=== PATIENT | male | born 1950 | race Caucasian/White ===

== ENCOUNTER → 2017-04-28 | Day surgery (SDC) | payer OTHER, MEDICARE ==
[2017-04-27 10:20] LABS: BASOPHILS % 0.5 % (0.0-1.0); EOSINOPHILS # (AUTO) 0.2 (0.0-0.4); EOSINOPHILS % 2.3 % (0.0-6.0); HEMATOCRIT 32.9 % (38.2-49.6); HEMOGLOBIN 9.3 g/dL (14.0-18.0); LYMPHOCYTES # (AUTO) 1.8 (1.0-3.2); LYMPHOCYTES % 24.8 % (18.0-39.1); MEAN CORPUSCULAR HEMOGLOBIN 21.4 pg (28-32); MEAN CORPUSCULAR HGB CONC 28.3 g/dL (31-35); MEAN CORPUSCULAR VOLUME 75.8 fL (81-99); MONOCYTES # (AUTO) 0.7 (0.2-0.8); MONOCYTES % 10.1 % (4.4-11.3); NEUTROPHILS # (AUTO) 4.5 (2.1-6.9); NEUTROPHILS % 61.8 % (38.7-80.0); PLATELET COUNT 250 x10e3/uL (140-360); RED BLOOD COUNT 4.34 x10e6/uL (4.3-5.7); RED CELL DISTRIBUTION WIDTH 18.6 % (11.7-14.4)
[2017-04-27 10:31] LABS: INR 0.95; PROTHROMBIN TIME 13.2 seconds (11.9-14.5)
[2017-04-27 10:39] LABS: ANION GAP 12.3 mmol/L (8-16); BLOOD UREA NITROGEN 18 mg/dL (7-26); BUN/CREATININE RATIO 20 (6-25); CALCIUM 9.9 mg/dL (8.4-10.2); CARBON DIOXIDE 29 mmol/L (22-29); CHLORIDE 107 mmol/L (98-107); EST GLOMERULAR FILTRATION RATE > 60 ML/MIN (60-); GLUCOSE 121 mg/dL (74-118); POTASSIUM 4.3 mmol/L (3.5-5.1); SODIUM 144 mmol/L (136-145)
--- NOTE | 2017-04-27 11:24 | Diagnostic Imaging Report ---
PROCEDURE:CHEST 2 VIEWS TECHNIQUE:PA and lateral chest INDICATION:Preoperative evaluation for pacemaker replacement. COMPARISON:Patients [facility], , CHEST 2 VIEWS, 07/02/2009, 12:50. FINDINGS: Lungs are clear and symmetrically inflated. Enlarged cardiac silhouette central vasculature. 2-lead pacemaker of the left hemithorax; leads intact. Intact skeleton with multilevel degenerative disc disease. CONCLUSION: No acute abnormality. Progressive cardiomegaly relative to June 2009. Dictated by: David Muller M.D. on 04/27/2017 at 11:33 Electronically approved by: David Muller M.D. on 04/27/2017 at 11:33
[2017-04-27 12:16] LABS: HYPOCHROMASIA MODERATE; PLATELET ESTIMATE ADEQUATE; PLATELET MORPHOLOGY COMMENT NORMAL; RBC MORPHOLOGY COMMENT NORMAL
[~2017-04-28] VITALS: Ht 170.2 cm; Wt 96.2 kg
[~2017-04-28] MED LIST: ASPIRIN81 MG PEG; ASPRIMOX 325 M325 MG PO; ATORVASTATIN CA10 MG PO; BACITRACIN 50,000 UNIT VIAL ONE; FENTANYL CITRATE/PF 100MCG/2 ML INJ ONE; FINASTERIDE5 MG PO; LIDOCAINE HCL 2% LOCAL 20 ML VIAL ONE; LOSARTAN POTASS25 MG PEG; MIDAZOLAM HCL 2 MG/2 ML VIAL ONE; OMEPRAZOLE40 MG PO; SODIUM CHLORIDE 0.9% 1000ML 1,000 ML ONE; SODIUM CHLORIDE 0.9% 500ML 1,000 ML ONE; TAMSULOSIN HCL0.4 MG PO; VANCOMYCIN 1GM/NS 250 ML 250 ML ONE; Z.0.METOPROLOL SUCC5 PO; Z.0.MICARDIS80 MG PO; Z.0.NIASPAN500 MG PO; Z.0.PLAVIX75 MG; ZOLPIDEM TARTRAT5 MG PO
[2017-04-28 06:50] VITALS: BP 154/87
--- NOTE | 2017-04-28 08:32 | Operative Report ---
DATE OF PROCEDURE: April 28, 2017 PROCEDURE: Dual chamber pacemaker generator replacement. INDICATIONS: Sick sinus syndrome and pacemaker generator end of life. TECHNIQUE: The patient's left subclavicular area was draped and prepped in the usual manner. The are was anesthetized with lidocaine. Sterile technique was used to open the pacemaker pocket with a 10 blade scalpel. The existing generator was dissected free of the pocket and removed from the leads. The leads were attached to a new [employer] generator. The pocket was irrigated with antibiotic solution. The generator was placed back in the pocket and anchored into the pocket with 2-0 silk. Two-0 Vicryl was used for the subcutaneous closure and the subcuticular closure. There were no complications. CONCLUSION: Successful dual chamber pacemaker generator replacement. Job#: [id number] RUSTY
[2017-04-28 13:33] VITALS: BP 142/82
== END | disposition home or self-care (01) ==
LOC: CATH LAB 06:54
PROVIDERS: ATTEND Internal Medicine Cardiovascular Disease
DX: Z45.010 Encounter for checking and testing of cardiac pacemaker pulse generator [battery] (principal); I49.5 Sick sinus syndrome; I25.10 Atherosclerotic heart disease of native coronary artery without angina pectoris; I10 Essential (primary) hypertension; Z01.810 Encounter for preprocedural cardiovascular examination; Z01.812 Encounter for preprocedural laboratory examination; Z01.818 Encounter for other preprocedural examination
CPT/HCPCS: 33228; C2619; 36415; 71020; 80048; 85025; 85610; 93005; J2001; J2250; J3370; J7030; J7040

== ENCOUNTER → 2017-05-24 | Emergency (ER) | payer OTHER, MEDICARE ==
[~2017-05-24] VITALS: Ht 170.2 cm; Wt 96.2 kg
[~2017-05-24] MED LIST changes: -BACITRACIN 50,000 UNIT VIAL ONE; -FENTANYL CITRATE/PF 100MCG/2 ML INJ ONE; -LIDOCAINE HCL 2% LOCAL 20 ML VIAL ONE; -MIDAZOLAM HCL 2 MG/2 ML VIAL ONE; -SODIUM CHLORIDE 0.9% 1000ML 1,000 ML ONE; -SODIUM CHLORIDE 0.9% 500ML 1,000 ML ONE; -VANCOMYCIN 1GM/NS 250 ML 250 ML ONE
== END | disposition home or self-care (01) ==
LOC: ER 13:31
DX: K43.9 Ventral hernia without obstruction or gangrene (principal)
CPT/HCPCS: 99281

== ENCOUNTER 2017-10-14 11:31 | Emergency (ER) | payer OTHER, MEDICARE ==
[~2017-10-14] VITALS: Ht 170.2 cm; Wt 90.7 kg
--- OUTSIDE RECORDS SUMMARY | 2017-10-14 11:34 | XMS REPORT ---
[facility] Address Unknown Phone Unavailable Care Team Providers Care Dehydrogenation Supervisor Name Role Phone YURIY SORIANO Unavailable Unavailable Problems This patient has no known problems. Allergies, Adverse Reactions, Alerts This patient has no known allergies or adverse reactions. Medications This patient has no known medications. Results Test Description Test Time Test Comments Text Results Atomic Results Result Comments CHEST 2 VIEWS [place] [id number] Patient Name: [facility] MR #: [id number] : 1950 Age/Sex: 67/M Req # : [id number] Adm Physician: Ordered by: YURIY SORIANO MD Report #: [id number] Location: [facility] Room/Bed: Procedure: [id number] DX/CHEST 2 VIEWS Exam Date: 04/27/17 Exam Time : 1105 REPORT STATUS: Signed PROCEDURE: CHEST 2 VIEWS TECHNIQUE: PA and lateral chest INDICATION: Preoperative evaluation for pacemaker replacement. COMPARISON: [facility], , CHEST 2 VIEWS, 2009, 12:50. FINDINGS: Lungs are clear and symmetrically inflated. Enlarged cardiac silhouette central vasculature. 2-lead pacemaker of the left hemithorax; leads intact. Intact skeleton with multilevel degenerative disc disease. CONCLUSION: No acute abnormality. Progressive cardiomegaly relative to June 2009. Dictated by: Reynaldo Muller M.D. on 04/27/2017 at 11:33 Electronically approved by: Reynaldo Muller M.D. on 04/27/2017 at 11:33 Dictated By: REYNALDO MULLER MD [id number] Transcribed By: SOFIA on 04/27/173 COPY TO: YURIY SORIANO MD
[2017-10-14] MEDS ORDERED: HYDRALAZINE HCL 20 MG/ML VIAL IV STA (12:25)
[2017-10-14 13:36] VITALS: BP 144/95
== END 2017-10-14 13:30 | disposition home or self-care (01) ==
LOC: ER 11:31
DX: I10 Essential (primary) hypertension (principal); K08.89 Other specified disorders of teeth and supporting structures
CPT/HCPCS: 99283; J0360

== ENCOUNTER 2018-04-09 09:37 | Emergency (ER) | payer OTHER, MEDICARE ==
[~2018-04-09] VITALS: Ht 170.2 cm; Wt 90.7 kg
[2018-04-09 10:09] LABS: BASOPHILS % 0.6 % (0.0-1.0); EOSINOPHILS # (AUTO) 0.1 (0.0-0.4); EOSINOPHILS % 2.1 % (0.0-6.0); HEMATOCRIT 41.9 % (38.2-49.6); LYMPHOCYTES # (AUTO) 1.8 (1.0-3.2); LYMPHOCYTES % 26.4 % (18.0-39.1); MEAN CORPUSCULAR HEMOGLOBIN 31.6 pg (28-32); MEAN CORPUSCULAR HGB CONC 33.4 g/dL (31-35); MEAN CORPUSCULAR VOLUME 94.6 fL (81-99); MONOCYTES # (AUTO) 0.5 (0.2-0.8); MONOCYTES % 7.6 % (4.4-11.3); NEUTROPHILS # (AUTO) 4.2 (2.1-6.9); NEUTROPHILS % 62.4 % (38.7-80.0); PLATELET COUNT 190 x10e3/uL (140-360); RED BLOOD COUNT 4.43 x10e6/uL (4.3-5.7); RED CELL DISTRIBUTION WIDTH 13.1 % (11.7-14.4)
[2018-04-09 10:23] LABS: BILIRUBIN,URINE NEGATIVE (NEGATIVE); CLARITY,URINE SL CLOUDY (CLEAR); COLOR,URINE YELLOW (YELLOW); KETONES,URINE NEGATIVE (NEGATIVE); LEUKOCYTE ESTERASE ,URINE NEGATIVE (NEGATIVE); NITRITE,URINE NEGATIVE (NEGATIVE); PROTEIN,URINE DIPSTICK NEGATIVE (NEGATIVE); URINE UROBILINOGEN 0.2 mg/dL (0.2 - 1)
[2018-04-09 10:24] LABS: BACTERIA,URINE FEW /HPF; RBC,URINE 0-5 /HPF (0-5)
[2018-04-09 10:36] LABS: ALANINE AMINOTRANSFERASE 22 IU/L (0-55); ALBUMIN 3.9 g/dL (3.5-5.0); ALBUMIN/GLOBULIN RATIO 1.1 (0.8-2.0); ALKALINE PHOSPHATASE 59 IU/L (40-150); ANION GAP 9.7 mmol/L (8-16); BLOOD UREA NITROGEN 25 mg/dL (7-26); BUN/CREATININE RATIO 29 (6-25); CALCIUM 9.6 mg/dL (8.4-10.2); CARBON DIOXIDE 31 mmol/L (22-29); CHLORIDE 106 mmol/L (98-107); CREATININE, SERUM 0.87 mg/dL (0.72-1.25); EST GLOMERULAR FILTRATION RATE > 60 ML/MIN (60-); GLUCOSE 122 mg/dL (74-118); POTASSIUM 3.7 mmol/L (3.5-5.1); SODIUM 143 mmol/L (136-145)
[2018-04-09] MEDS ORDERED: SODIUM CHLORIDE 0.9% 1000ML 1,000 ML IV STA (10:39)
[2018-04-09] MEDS ORDERED: MORPHINE SULFATE INJ 4 MG/ML INJ IV PRN (10:45)
[2018-04-09] MEDS ORDERED: SODIUM CHLORIDE 0.9% 100 ML 0 ML ONE (12:24)
[2018-04-09] MEDS ORDERED: IOPAMIDOL 300MG/ML 100 ML INFUS..BTL IV ONE (12:24)
[2018-04-09] MEDS ORDERED: IOPAMIDOL 370 MG/ML 200 ML INFUS..BTL INJ ONE ×2 (12:25→20:19)
[2018-04-09] MEDS ORDERED: SODIUM CHLORIDE 0.9% 50ML 50 ML ONE ×2 (12:25→20:19)
--- NOTE | 2018-04-09 12:30 | Diagnostic Imaging Report ---
EXAMINATION: CT of the abdomen and pelvis with contrast. TECHNIQUE: Spiral CT images of the abdomen and pelvis were performed from the lung bases to the lesser trochanters after the intravenous administration of 100 cc of Isovue-370 and the oral administration of water. Coronal and sagittal reformatted images were obtained. COMPARISON: Chest radiograph 04/27/2017 CLINICAL HISTORY:Abdominal pain DISCUSSION: ABDOMEN/PELVIS: LOWER THORAX:Unremarkable. Implant cardiac device lead partially visualized. HEPATOBILIARY: No focal hepatic lesions. No intra-or extrahepatic biliary ductal dilation. The gallbladder is normal. SPLEEN: No splenomegaly. PANCREAS: Dystrophic calcification in the pancreatic tail. No mass or ductal dilatation. ADRENALS: No adrenal nodules. KIDNEYS/URETERS: No hydronephrosis, stones, or solid mass lesions. PELVIC ORGANS/BLADDER: The urinary bladder is poorly evaluated secondary to underdistention. The prostate is enlarged with disproportionate mass effect on the left side of the urinary bladder base as seen on series 2 image 75. PERITONEUM/RETROPERITONEUM: No ascites. No pneumoperitoneum. LYMPH NODES: No pelvic sidewall, retroperitoneal, or mesenteric lymphadenopathy. VESSELS: There is atherosclerotic calcification of the abdominal aorta, major branch vessels, and iliac arterial systems without aneurysmal dilatation. Portal vein, splenic vein, and central superior mesenteric vein are patent. GI TRACT: Status post mesh repair of a ventral hernia with a complex, multilobulated recurrent hernia. Along the right superolateral margin of the repaired portion there is a hernia defect measuring 4.2 cm transversely, which contains a loop of small bowel and a small amount of adjacent free fluid. Along the left side of the repaired segment there is a 3.2 cm transverse hernia defect, also containing a loop of small bowel without evidence of distention. Finally, inferior to the repaired segment, at midline there is a 5.7 cm hernia defect which contains a segment of small bowel again without evidence of distention or inflammatory change. The large bowel is notable for numerous diverticula along the descending and sigmoid colon without wall thickening or adjacent inflammatory change, though partial collapse of the bowel limits evaluation. The appendix is normal. Remainder of the small bowel shows no evidence of distention or wall thickening, though there is mild inflammatory stranding within the small bowel mesentery for example on series 2 image 46.. BONES AND SOFT TISSUE: No osseous destructive lesions. Ventral abdominal wall hernia as above. IMPRESSION: Complex recurrent ventral abdominal hernia as described above, which contains several loops of small bowel. There is no evidence of bowel obstruction, though mild mesenteric inflammation is noted. No brii pneumoperitoneum. Large bowel diverticulosis without evidence of diverticulitis. Atherosclerotic vascular disease. Prostatomegaly with disproportionate mass effect on the left side of the urinary bladder base. Referral to urology service is suggested. Signed by: Dr. Avni Cueva M.D. on 04/09/2018 12:26 PM
[2018-04-09 13:56] VITALS: BP 171/91
[2018-04-09] MEDS ORDERED: HYDROMORPHONE 2MG/ML 2 MG/ML ML IV NR ×2 (14:15)
== END 2018-04-09 14:05 | disposition home or self-care (01) ==
LOC: ER 09:37
DX: R10.33 Periumbilical pain (principal); K43.2 Incisional hernia without obstruction or gangrene; K57.30 Diverticulosis of large intestine without perforation or abscess without bleeding; I10 Essential (primary) hypertension; I25.10 Atherosclerotic heart disease of native coronary artery without angina pectoris; Z95.5 Presence of coronary angioplasty implant and graft; E78.5 Hyperlipidemia, unspecified; N40.0 Benign prostatic hyperplasia without lower urinary tract symptoms; Z79.02 Long term (current) use of antithrombotics/antiplatelets; Z79.82 Long term (current) use of aspirin
CPT/HCPCS: 36415; 74177; 80053; 81001; 85025; 99284; J1170; J2270; J7030; Q9967

== ENCOUNTER 2020-10-05 09:56 | Inpatient (IN) | payer MEDICARE, OTHER ==
[~2020-10-05] VITALS: Ht 170.2 cm; Wt 99.3 kg
[~2020-10-05 09:56] MED LIST changes: +LOSARTAN POTASS25 MG MT; -LOSARTAN POTASS25 MG PEG
[2020-10-05] MEDS ORDERED: SODIUM CHLORIDE 0.9% 1000ML 1,000 ML IV ONE (10:02)
[2020-10-05] MEDS ORDERED: ONDANSETRON HCL INJ 2MG/ML 2ML 2 MG/ML VIAL IV PRN (10:15)
[2020-10-05 10:29] LABS: BASOPHILS % 0.2 % (0.0-1.0); EOSINOPHILS % 0.1 % (0.0-6.0); HEMATOCRIT 46.4 % (38.2-49.6); HEMOGLOBIN 15.4 g/dL (14.0-18.0); LYMPHOCYTES # (AUTO) 1.4 (1.0-3.2); LYMPHOCYTES % 16.5 % (18.0-39.1); MEAN CORPUSCULAR HEMOGLOBIN 31.1 pg (28-32); MEAN CORPUSCULAR HGB CONC 33.2 g/dL (31-35); MEAN CORPUSCULAR VOLUME 93.7 fL (81-99); MONOCYTES # (AUTO) 0.8 (0.2-0.8); MONOCYTES % 8.8 % (4.4-11.3); NEUTROPHILS # (AUTO) 6.4 (2.1-6.9); NEUTROPHILS % 73.8 % (38.7-80.0); PLATELET COUNT 248 x10e3/uL (140-360); RED BLOOD COUNT 4.95 x10e6/uL (4.3-5.7); RED CELL DISTRIBUTION WIDTH 13.2 % (11.7-14.4)
[2020-10-05] MEDS ORDERED: HYDROCHLOROTH12.5 MG PO (10:41)
[2020-10-05] MEDS ORDERED: KRILL OIL500 MG PO (10:41)
[2020-10-05] MEDS ORDERED: CO Q-1010 MG PO (10:41)
[2020-10-05 10:51] LABS: ALANINE AMINOTRANSFERASE 26 IU/L (0-55); ALBUMIN 4.5 g/dL (3.5-5.0); ALBUMIN/GLOBULIN RATIO 1.1 (0.8-2.0); ALKALINE PHOSPHATASE 60 IU/L (40-150); ANION GAP 18.3 mmol/L (8-16); BLOOD UREA NITROGEN 29 mg/dL (7-26); BUN/CREATININE RATIO 26 (6-25); CALCIUM 10.1 mg/dL (8.4-10.2); CARBON DIOXIDE 31 mmol/L (22-29); CHLORIDE 93 mmol/L (98-107); CREATININE, SERUM 1.13 mg/dL (0.72-1.25); EST GLOMERULAR FILTRATION RATE > 60 ML/MIN (60-); GLUCOSE 168 mg/dL (74-118); LIPASE 7 U/L (8-78); POTASSIUM 3.3 mmol/L (3.5-5.1); SODIUM 139 mmol/L (136-145)
[2020-10-05 10:51] LABS: CLARITY,URINE CLEAR (CLEAR); COLOR,URINE YELLOW (YELLOW); KETONES,URINE NEGATIVE (NEGATIVE); LEUKOCYTE ESTERASE ,URINE NEGATIVE (NEGATIVE); NITRITE,URINE NEGATIVE (NEGATIVE); PROTEIN,URINE DIPSTICK 1+ (NEGATIVE); URINE UROBILINOGEN 0.2 mg/dL (0.2 - 1)
[2020-10-05] MEDS ORDERED: IOPAMIDOL 370 MG/ML 200 ML INFUS..BTL INJ ONE (11:19)
[2020-10-05] MEDS ORDERED: SODIUM CHLORIDE 0.9% 50ML 50 ML ONE (11:19)
[2020-10-05 11:23] LABS: RBC,URINE 0-5 /HPF (0-5); WBC,URINE (MAN) 0-5 /HPF (0-5)
[2020-10-05 11:24] LABS: AMORPHOUS SEDIMENT,URINE FEW (FEW); BACTERIA,URINE RARE /HPF
[2020-10-05] MEDS: SODIUM CHLORIDE 0.9% 1000ML 1,000 ML IV SCH ×2 (13:45→21:17)
[2020-10-05] MEDS: FENTANYL CITRATE/PF 100MCG/2 ML INJ IV PRN ×3 (13:51→17:57)
[2020-10-05 14:46] LABS: CHOL/HDL RATIO 3.5 (3.9-4.7)
[2020-10-05 15:00] VITALS: BP 164/92
[2020-10-05 15:55] VITALS: BP 164/92
[2020-10-05 16:33] VITALS: BP 164/92
[2020-10-05] MEDS ORDERED: FAMOTIDINE20 MG PO (16:47)
[2020-10-05] MEDS: FAMOTIDINE 20 MG/2 ML VIAL IV SCH (17:00)
[2020-10-05] MEDS ORDERED: METOPROLOL TARTRATE INJ 1 MG/ML VIAL IV PRN (18:45)
[2020-10-05 20:57] VITALS: BP 145/85
[2020-10-05] MEDS: PIPERACILLIN/TAZOBACTAM 3.375 GM in SODIUM CHLORIDE 0.9% 50ML 50 ML IV SCH (21:17)
[2020-10-05 21:18] VITALS: BP 145/85
[2020-10-06] VITALS (8 sets, daily range): BP systolic 143–159; BP diastolic 84–96
[2020-10-06] MEDS: ONDANSETRON HCL INJ 2MG/ML 2ML 2 MG/ML VIAL IV PRN ×3 (00:53→21:30)
[2020-10-06] MEDS: MORPHINE SULFATE INJ 4 MG/ML INJ 1ML IV PRN ×2 (00:53→21:30)
[2020-10-06 04:54] LABS: BASOPHILS # (AUTO) 0.1 (0.0-0.1); BASOPHILS % 0.9 % (0.0-1.0); HEMATOCRIT 43.5 % (38.2-49.6); HEMOGLOBIN 14.2 g/dL (14.0-18.0); LYMPHOCYTES # (AUTO) 0.5 (1.0-3.2); LYMPHOCYTES % 9.5 % (18.0-39.1); MEAN CORPUSCULAR HEMOGLOBIN 31.2 pg (28-32); MEAN CORPUSCULAR HGB CONC 32.6 g/dL (31-35); MEAN CORPUSCULAR VOLUME 95.6 fL (81-99); MONOCYTES # (AUTO) 0.8 (0.2-0.8); MONOCYTES % 14.8 % (4.4-11.3); NEUTROPHILS # (AUTO) 4.1 (2.1-6.9); NEUTROPHILS % 74.3 % (38.7-80.0); PLATELET COUNT 171 x10e3/uL (140-360); RED BLOOD COUNT 4.55 x10e6/uL (4.3-5.7); RED CELL DISTRIBUTION WIDTH 13.4 % (11.7-14.4)
[2020-10-06 05:15] LABS: ANION GAP 16.6 mmol/L (8-16); BLOOD UREA NITROGEN 31 mg/dL (7-26); BUN/CREATININE RATIO 27 (6-25); CALCIUM 8.8 mg/dL (8.4-10.2); CARBON DIOXIDE 27 mmol/L (22-29); CHLORIDE 104 mmol/L (98-107); CREATININE, SERUM 1.15 mg/dL (0.72-1.25); EST GLOMERULAR FILTRATION RATE > 60 ML/MIN (60-); GLUCOSE 148 mg/dL (74-118); POTASSIUM 3.6 mmol/L (3.5-5.1); SODIUM 144 mmol/L (136-145)
[2020-10-06 05:33] LABS: MAGNESIUM 2.6 MG/DL (1.3-2.1); PHOSPHORUS 3.4 MG/DL (2.3-4.7)
[2020-10-06] MEDS: SODIUM CHLORIDE 0.9% 1000ML 1,000 ML IV SCH ×3 (05:45→20:49)
[2020-10-06] MEDS: PIPERACILLIN/TAZOBACTAM 3.375 GM in SODIUM CHLORIDE 0.9% 50ML 50 ML IV SCH ×3 (05:46→21:32)
[2020-10-06 06:38] LABS: BAND NEUTROPHILS % (MANUAL) 14 %; EOSINOPHILS % (MANUAL) 1 % (0-7); LYMPHOCYTES % (MANUAL) 8 % (19-48); MONOCYTES % (MANUAL) 11 % (3.4-9.0); NEUTROPHILS % (MANUAL) 65 % (40-74); PLATELET ESTIMATE ADEQUATE; PLATELET MORPHOLOGY COMMENT NORMAL; RBC MORPHOLOGY COMMENT NORMAL
[2020-10-06] MEDS: FAMOTIDINE 20 MG/2 ML VIAL IV SCH ×2 (08:40→18:41)
[2020-10-06] MEDS ORDERED: PIPERACILLIN/TAZOBACTAM 3.375 GM VIAL ONE (10:41)
[2020-10-06] MEDS ORDERED: SODIUM CHLORIDE 0.9% 50ML 50 ML ONE (10:42)
[2020-10-06] MEDS ORDERED: ACETAMINOPHEN 1000 MG/100 ML 100 ML IV ONE (11:38)
[2020-10-06] MEDS ORDERED: HYDROMORPHONE 1MG/1ML INJ ONE (11:39)
[2020-10-06] MEDS ORDERED: ALBUMIN 25% 12.5GM 50ML 0 ML IV ONE (12:10)
[2020-10-06] MEDS ORDERED: MIDAZOLAM HCL 2 MG/2 ML VIAL ONE (12:20)
[2020-10-06] MEDS ORDERED: FENTANYL CITRATE/PF 100MCG/2 ML INJ ONE (12:20)
[2020-10-06] MEDS ORDERED: SUGAMMADEX SODIUM 200 MG/2 ML VIAL IV ONE (12:31)
[2020-10-06] MEDS ORDERED: NEOSTIGMINE 1 MG/ML 10ML VIAL ONE (12:38)
[2020-10-06] MEDS ORDERED: KETOROLAC TROMETHAMINE 30 MG/ML VIAL ONE (12:55)
[2020-10-06] MEDS ORDERED: ONDANSETRON HCL INJ 2MG/ML 2ML 2 MG/ML VIAL ONE (12:55)
[2020-10-06] MEDS ORDERED: LIDOCAINE HCL 2% LOCAL INJ 5 ML SDV VIAL INJ ONE (12:55)
[2020-10-06] MEDS ORDERED: SEVOFLURANE INHAL SOLN 250 ML PEN BTL ONE (12:55)
[2020-10-06] MEDS ORDERED: ROCURONIUM BROMIDE 10 MG/ML 5ML VIAL IV ONE (12:55)
[2020-10-06] MEDS ORDERED: METOCLOPRAMIDE HCL 10 MG/2ML VIAL ONE (12:55)
[2020-10-06] MEDS ORDERED: PROPOFOL IV EMULSION 10 MG/ML 20 ML VIAL ONE (12:55)
[2020-10-06] MEDS ORDERED: POVIDONE IODINE 0.05% 0.05 % ML PO ONE (12:55)
[2020-10-06] MEDS ORDERED: DEXAMETHASONE SOD PHOS INJ 4 MG/ML VIAL ONE (12:55)
[2020-10-07] VITALS (7 sets, daily range): BP systolic 141–156; BP diastolic 85–101
[2020-10-07] MEDS: MORPHINE SULFATE INJ 4 MG/ML INJ 1ML IV PRN ×3 (03:54→21:24)
[2020-10-07] MEDS: ONDANSETRON HCL INJ 2MG/ML 2ML 2 MG/ML VIAL IV PRN ×2 (03:55→08:24)
[2020-10-07] MEDS: SODIUM CHLORIDE 0.9% 1000ML 1,000 ML IV SCH ×2 (05:38→13:57)
[2020-10-07] MEDS: PIPERACILLIN/TAZOBACTAM 3.375 GM in SODIUM CHLORIDE 0.9% 50ML 50 ML IV SCH ×3 (05:38→21:17)
[2020-10-07 07:53] LABS: BASOPHILS % 0.3 % (0.0-1.0); EOSINOPHILS % 0.2 % (0.0-6.0); HEMATOCRIT 41.9 % (38.2-49.6); HEMOGLOBIN 13.2 g/dL (14.0-18.0); LYMPHOCYTES # (AUTO) 0.8 (1.0-3.2); LYMPHOCYTES % 13.3 % (18.0-39.1); MEAN CORPUSCULAR HEMOGLOBIN 30.8 pg (28-32); MEAN CORPUSCULAR HGB CONC 31.5 g/dL (31-35); MEAN CORPUSCULAR VOLUME 97.9 fL (81-99); MONOCYTES # (AUTO) 0.6 (0.2-0.8); MONOCYTES % 10.2 % (4.4-11.3); NEUTROPHILS # (AUTO) 4.7 (2.1-6.9); NEUTROPHILS % 74.9 % (38.7-80.0); PLATELET COUNT 186 x10e3/uL (140-360); RED BLOOD COUNT 4.28 x10e6/uL (4.3-5.7); RED CELL DISTRIBUTION WIDTH 13.8 % (11.7-14.4)
[2020-10-07 08:15] LABS: MAGNESIUM 2.8 MG/DL (1.3-2.1); PHOSPHORUS 2.4 MG/DL (2.3-4.7)
[2020-10-07] MEDS: FAMOTIDINE 20 MG/2 ML VIAL IV SCH ×2 (08:23→16:43)
[2020-10-07 08:25] LABS: ANION GAP 13.7 mmol/L (8-16); BLOOD UREA NITROGEN 31 mg/dL (7-26); BUN/CREATININE RATIO 28 (6-25); CALCIUM 8.2 mg/dL (8.4-10.2); CARBON DIOXIDE 28 mmol/L (22-29); CHLORIDE 109 mmol/L (98-107); CREATININE, SERUM 1.11 mg/dL (0.72-1.25); EST GLOMERULAR FILTRATION RATE > 60 ML/MIN (60-); GLUCOSE 135 mg/dL (74-118); POTASSIUM 3.7 mmol/L (3.5-5.1); SODIUM 147 mmol/L (136-145)
[2020-10-07 10:26] LABS: BAND NEUTROPHILS % (MANUAL) 8 %; LYMPHOCYTES % (MANUAL) 4 % (19-48); MONOCYTES % (MANUAL) 10 % (3.4-9.0); MYELOCYTES % (MANUAL) 3 % (0-0); NEUTROPHILS % (MANUAL) 69 % (40-74); PLATELET ESTIMATE ADEQUATE; PLATELET MORPHOLOGY COMMENT NORMAL; RBC MORPHOLOGY COMMENT NORMAL
[2020-10-07] MEDS: HYDRALAZINE HCL 20 MG/ML VIAL IV PRN (16:43)
[2020-10-08] VITALS: BP 149/92
[2020-10-08] MEDS: SODIUM CHLORIDE 0.9% 1000ML 1,000 ML IV SCH ×4 (03:18→22:29)
[2020-10-08] MEDS: MORPHINE SULFATE INJ 4 MG/ML INJ 1ML IV PRN ×2 (04:20→10:47)
[2020-10-08] MEDS: PIPERACILLIN/TAZOBACTAM 3.375 GM in SODIUM CHLORIDE 0.9% 50ML 50 ML IV SCH ×3 (05:40→22:29)
[2020-10-08] MEDS: HYDRALAZINE HCL 20 MG/ML VIAL IV PRN (05:40)
[2020-10-08 08:55] VITALS: BP 152/92
[2020-10-08 08:57] VITALS: BP 152/92
[2020-10-08] MEDS: FAMOTIDINE 20 MG/2 ML VIAL IV SCH ×2 (09:32→16:54)
[2020-10-08 10:22] LABS: BASOPHILS # (AUTO) 0.1 (0.0-0.1); BASOPHILS % 0.9 % (0.0-1.0); EOSINOPHILS # (AUTO) 0.1 (0.0-0.4); EOSINOPHILS % 0.7 % (0.0-6.0); HEMATOCRIT 44.7 % (38.2-49.6); HEMOGLOBIN 14.1 g/dL (14.0-18.0); LYMPHOCYTES # (AUTO) 1.2 (1.0-3.2); LYMPHOCYTES % 14.4 % (18.0-39.1); MEAN CORPUSCULAR HEMOGLOBIN 31.4 pg (28-32); MEAN CORPUSCULAR HGB CONC 31.5 g/dL (31-35); MEAN CORPUSCULAR VOLUME 99.6 fL (81-99); NEUTROPHILS % 69.4 % (38.7-80.0); PLATELET COUNT 191 x10e3/uL (140-360); RED BLOOD COUNT 4.49 x10e6/uL (4.3-5.7); RED CELL DISTRIBUTION WIDTH 13.7 % (11.7-14.4)
[2020-10-08 10:41] LABS: ANION GAP 16.8 mmol/L (8-16); BLOOD UREA NITROGEN 24 mg/dL (7-26); BUN/CREATININE RATIO 28 (6-25); CALCIUM 7.9 mg/dL (8.4-10.2); CARBON DIOXIDE 19 mmol/L (22-29); CHLORIDE 117 mmol/L (98-107); CREATININE, SERUM 0.85 mg/dL (0.72-1.25); EST GLOMERULAR FILTRATION RATE > 60 ML/MIN (60-); GLUCOSE 98 mg/dL (74-118); POTASSIUM 3.8 mmol/L (3.5-5.1); SODIUM 149 mmol/L (136-145)
[2020-10-08 12:29] VITALS: BP 146/82
[2020-10-08] MEDS ORDERED: POTASSIUM CHLORIDE 20MEQ/100ML 100 ML IV ONE (13:45)
[2020-10-08 16:42] VITALS: BP 149/88
[2020-10-08] MEDS ORDERED: LOPERAMIDE HCL 2 MG CAP PO NR (19:30)
[2020-10-08 20:00] VITALS: BP 153/82
[2020-10-08] MEDS ORDERED: LORAZEPAM INJ 2 MG/ML VIAL IV PRN (22:30)
[2020-10-09] VITALS (7 sets, daily range): BP systolic 149–167; BP diastolic 82–98
[2020-10-09 04:54] LABS: BASOPHILS # (AUTO) 0.1 (0.0-0.1); BASOPHILS % 0.8 % (0.0-1.0); EOSINOPHILS # (AUTO) 0.1 (0.0-0.4); EOSINOPHILS % 0.8 % (0.0-6.0); HEMATOCRIT 41.3 % (38.2-49.6); LYMPHOCYTES # (AUTO) 1.1 (1.0-3.2); LYMPHOCYTES % 11.7 % (18.0-39.1); MEAN CORPUSCULAR HGB CONC 31.5 g/dL (31-35); MEAN CORPUSCULAR VOLUME 98.6 fL (81-99); MONOCYTES # (AUTO) 0.9 (0.2-0.8); NEUTROPHILS # (AUTO) 6.6 (2.1-6.9); NEUTROPHILS % 72.1 % (38.7-80.0); PLATELET COUNT 195 x10e3/uL (140-360); RED BLOOD COUNT 4.19 x10e6/uL (4.3-5.7); RED CELL DISTRIBUTION WIDTH 13.8 % (11.7-14.4)
[2020-10-09 05:13] LABS: ANION GAP 14.7 mmol/L (8-16); BLOOD UREA NITROGEN 23 mg/dL (7-26); BUN/CREATININE RATIO 28 (6-25); CALCIUM 7.8 mg/dL (8.4-10.2); CARBON DIOXIDE 21 mmol/L (22-29); CHLORIDE 120 mmol/L (98-107); CREATININE, SERUM 0.81 mg/dL (0.72-1.25); EST GLOMERULAR FILTRATION RATE > 60 ML/MIN (60-); GLUCOSE 106 mg/dL (74-118); POTASSIUM 3.7 mmol/L (3.5-5.1); SODIUM 152 mmol/L (136-145)
[2020-10-09] MEDS: PIPERACILLIN/TAZOBACTAM 3.375 GM in SODIUM CHLORIDE 0.9% 50ML 50 ML IV SCH ×3 (05:40→21:51)
[2020-10-09] MEDS: SODIUM CHLORIDE 0.9% 1000ML 1,000 ML IV SCH ×2 (05:40→15:25)
[2020-10-09] MEDS ORDERED: CHLORASEPTIC SPRAY 177 ML BTL MM PRN (08:45)
[2020-10-09] MEDS: FAMOTIDINE 20 MG/2 ML VIAL IV SCH ×2 (09:00→15:31)
[2020-10-09] MEDS: HYDRALAZINE HCL 20 MG/ML VIAL IV PRN (12:00)
[2020-10-09] MEDS ORDERED: TYLENOL # 31 EA PO ×2 (13:01→13:04)
[2020-10-09] MEDS ORDERED: HYDROCODONE/APAP 7.5MG-325MG 1 EA TAB PO PRN (14:15)
[2020-10-10] VITALS (7 sets, daily range): BP systolic 150–156; BP diastolic 84–96
[2020-10-10] MEDS: SODIUM CHLORIDE 0.9% 1000ML 1,000 ML IV SCH ×2 (05:48→19:20)
[2020-10-10] MEDS: PIPERACILLIN/TAZOBACTAM 3.375 GM in SODIUM CHLORIDE 0.9% 50ML 50 ML IV SCH ×3 (05:49→21:45)
[2020-10-10 06:18] LABS: BASOPHILS # (AUTO) 0.1 (0.0-0.1); EOSINOPHILS # (AUTO) 0.3 (0.0-0.4); HEMATOCRIT 38.2 % (38.2-49.6); HEMOGLOBIN 12.2 g/dL (14.0-18.0); LYMPHOCYTES # (AUTO) 1.6 (1.0-3.2); LYMPHOCYTES % 18.9 % (18.0-39.1); MEAN CORPUSCULAR HEMOGLOBIN 31.6 pg (28-32); MEAN CORPUSCULAR HGB CONC 31.9 g/dL (31-35); MONOCYTES % 11.8 % (4.4-11.3); NEUTROPHILS % 59.5 % (38.7-80.0); PLATELET COUNT 182 x10e3/uL (140-360); RED BLOOD COUNT 3.86 x10e6/uL (4.3-5.7); RED CELL DISTRIBUTION WIDTH 13.8 % (11.7-14.4)
[2020-10-10 06:34] LABS: ANION GAP 14.4 mmol/L (8-16); BLOOD UREA NITROGEN 17 mg/dL (7-26); BUN/CREATININE RATIO 21 (6-25); CALCIUM 7.8 mg/dL (8.4-10.2); CARBON DIOXIDE 20 mmol/L (22-29); CHLORIDE 114 mmol/L (98-107); CREATININE, SERUM 0.82 mg/dL (0.72-1.25); EST GLOMERULAR FILTRATION RATE > 60 ML/MIN (60-); GLUCOSE 97 mg/dL (74-118); POTASSIUM 3.4 mmol/L (3.5-5.1); SODIUM 145 mmol/L (136-145)
[2020-10-10 08:07] LABS: BAND NEUTROPHILS % (MANUAL) 4 %; EOSINOPHILS % (MANUAL) 2 % (0-7); LYMPHOCYTES % (MANUAL) 9 % (19-48); MONOCYTES % (MANUAL) 8 % (3.4-9.0); MYELOCYTES % (MANUAL) 2 % (0-0); NEUTROPHILS % (MANUAL) 75 % (40-74)
[2020-10-10] MEDS: FAMOTIDINE 20 MG/2 ML VIAL IV SCH ×2 (08:07→16:20)
[2020-10-10] MEDS ORDERED: POTASSIUM CHLORIDE 20 MEQ TAB CR PO ONE (12:30)
[2020-10-10] MEDS: ONDANSETRON HCL INJ 2MG/ML 2ML 2 MG/ML VIAL IV PRN (17:51)
[2020-10-11] VITALS: BP_SYST 155; BP_SYST 157; BP_DIAS 90; BP_DIAS 96
[2020-10-11 04:00] VITALS: BP 148/89
[2020-10-11] MEDS: PIPERACILLIN/TAZOBACTAM 3.375 GM in SODIUM CHLORIDE 0.9% 50ML 50 ML IV SCH ×2 (05:34→13:24)
[2020-10-11 07:29] VITALS: BP 159/93
[2020-10-11 07:47] VITALS: BP 159/93
[2020-10-11] MEDS: FAMOTIDINE 20 MG/2 ML VIAL IV SCH (07:47)
[2020-10-11 08:06] LABS: ANION GAP 13.7 mmol/L (8-16); BLOOD UREA NITROGEN 10 mg/dL (7-26); BUN/CREATININE RATIO 12 (6-25); CALCIUM 8.1 mg/dL (8.4-10.2); CARBON DIOXIDE 21 mmol/L (22-29); CHLORIDE 108 mmol/L (98-107); CREATININE, SERUM 0.82 mg/dL (0.72-1.25); EST GLOMERULAR FILTRATION RATE > 60 ML/MIN (60-); GLUCOSE 97 mg/dL (74-118); POTASSIUM 3.7 mmol/L (3.5-5.1); SODIUM 139 mmol/L (136-145)
[2020-10-11 08:20] LABS: MAGNESIUM 1.8 MG/DL (1.3-2.1)
[2020-10-11] MEDS ORDERED: SENNA LAX8.6 MG PO (08:32)
[2020-10-11] MEDS ORDERED: ZOFRAN4 MG PO (08:32)
[2020-10-11] MEDS ORDERED: COLACE100 MG PO (08:32)
[2020-10-11] MEDS: SODIUM CHLORIDE 0.9% 1000ML 1,000 ML IV SCH (11:24)
[2020-10-11 11:47] VITALS: BP 152/97
== END 2020-10-11 14:50 | disposition home or self-care (01) | DRG 354 ==
LOC: ER 11:11 → ERHOLD 13:34 → MED/SURG3 14:41
PROVIDERS: ADMIT Internal Medicine; ATTEND Internal Medicine
PROC: 0WQF0ZZ Repair Abdominal Wall, Open Approach (ICD-10-PCS; principal; 2020-10-05)
DX: K43.0 Incisional hernia with obstruction, without gangrene (principal); E87.2 Acidosis; Z95.0 Presence of cardiac pacemaker; E87.5 Hyperkalemia; Z95.5 Presence of coronary angioplasty implant and graft; E78.5 Hyperlipidemia, unspecified; I49.5 Sick sinus syndrome; Z20.822 Contact with and (suspected) exposure to COVID-19; K21.9 Gastro-esophageal reflux disease without esophagitis; E66.9 Obesity, unspecified; Z68.31 Body mass index [BMI] 31.0-31.9, adult; E87.6 Hypokalemia; I11.9 Hypertensive heart disease without heart failure; N40.0 Benign prostatic hyperplasia without lower urinary tract symptoms
CPT/HCPCS: 36415; 74177; 80048; 80053; 80061; 81001; 82948; 83036; 83605; 83690; 83735; 84100; 84132; 84484; 85025; 93005; 96361; 99284; J0360; J1100; J1170; J1885; J2001; J2060; J2250; J2270; J2405; J2543; J2710; J2765; J3010; J3480; J7030; Q9967; U0002

== ENCOUNTER 2020-11-09 08:35 | Emergency (ER) | payer OTHER ==
[~2020-11-09] VITALS: Ht 170.2 cm; Wt 99.3 kg
[~2020-11-09 08:35] MED LIST changes: +CO Q-1010 MG PO; +COLACE100 MG PO; +FAMOTIDINE20 MG PO; +HYDROCHLOROTH12.5 MG PO; +KRILL OIL500 MG PO; +SENNA LAX8.6 MG PO; +TYLENOL # 31 EA PO; +ZOFRAN4 MG PO
[2020-11-09] MEDS ORDERED: FLOMAX0.4 MG PO (09:09)
== END 2020-11-09 10:13 | disposition home or self-care (01) ==
LOC: ER 08:42
DX: R33.8 Other retention of urine (principal); N40.0 Benign prostatic hyperplasia without lower urinary tract symptoms
CPT/HCPCS: 51700; 99284

== ENCOUNTER 2021-10-03 06:46 | Observation (INO) | payer MEDICARE, OTHER ==
[~2021-10-03] VITALS: Ht 170.2 cm; Wt 91.6 kg
[~2021-10-03 06:46] MED LIST changes: +FLOMAX0.4 MG PO
[2021-10-03] MEDS ORDERED: METOPROLOL TARTRATE INJ 1 MG/ML VIAL IV ONE (07:15)
[2021-10-03] MEDS ORDERED: SODIUM CHLORIDE 0.9% 500ML 500 ML IV STA (07:20)
[2021-10-03 07:21] LABS: BASOPHILS % 0.4 % (0.0-1.0); EOSINOPHILS # (AUTO) 0.2 (0.0-0.4); EOSINOPHILS % 1.7 % (0.0-6.0); HEMATOCRIT 51.7 % (38.2-49.6); HEMOGLOBIN 16.6 g/dL (14.0-18.0); LYMPHOCYTES # (AUTO) 2.8 (1.0-3.2); LYMPHOCYTES % 26.2 % (18.0-39.1); MEAN CORPUSCULAR HEMOGLOBIN 31.6 pg (28-32); MEAN CORPUSCULAR HGB CONC 32.1 g/dL (31-35); MEAN CORPUSCULAR VOLUME 98.3 fL (81-99); MONOCYTES # (AUTO) 0.8 (0.2-0.8); MONOCYTES % 7.2 % (4.4-11.3); NEUTROPHILS # (AUTO) 6.9 (2.1-6.9); PLATELET COUNT 229 x10e3/uL (140-360); RED BLOOD COUNT 5.26 x10e6/uL (4.3-5.7); RED CELL DISTRIBUTION WIDTH 13.3 % (11.7-14.4)
[2021-10-03 07:54] LABS: INR 0.91; PROTHROMBIN TIME 13.1 seconds (11.9-14.5)
[2021-10-03 08:00] LABS: ALBUMIN 4.2 g/dL (3.5-5.0); ALBUMIN/GLOBULIN RATIO 0.9 (0.8-2.0); ANION GAP 17.7 mmol/L (8-16); CALCIUM 11.4 mg/dL (8.4-10.2); CREATININE, SERUM 1.19 mg/dL (0.72-1.25); POTASSIUM 3.7 mmol/L (3.5-5.1)
[2021-10-03] MEDS ORDERED: Morphine 4mg Syringe 4 MG/ML INJ IV PRN (08:30)
[2021-10-03] MEDS ORDERED: ONDANSETRON HCL INJ 2MG/ML 2ML 2 MG/ML VIAL IV PRN ×2 (08:30→13:30)
[2021-10-03] MEDS ORDERED: ASPIRIN 81 MG CHEW TAB PO ONE (08:30)
[2021-10-03] MEDS ORDERED: ENOXAPARIN SODIUM INJ 100 MG/ML SYR SC SCH (09:00)
[2021-10-03 10:02] VITALS: BP 131/90
[2021-10-03 10:04] VITALS: BP 131/90
[2021-10-03 10:08] VITALS: BP 131/90
[2021-10-03 12:33] VITALS: BP 131/69
[2021-10-03] MEDS ORDERED: METOPROLOL TARTRATE INJ 1 MG/ML VIAL IV PRN (13:30)
[2021-10-03] MEDS ORDERED: POLYETHYLENE GLYCOL 3350 17 GM PACK PO PRN (13:30)
[2021-10-03] MEDS ORDERED: ACETAMINOPHEN 325 MG TAB PO PRN (13:30)
[2021-10-03] MEDS ORDERED: ACETAMINOPHEN/CODEINE 300MG - 30MG TAB PO PRN (13:30)
[2021-10-03] MEDS: SODIUM CHLORIDE 0.9% 1000ML 1,000 ML IV SCH (15:53)
[2021-10-03] MEDS: FAMOTIDINE 20 MG TAB PO SCH (15:53)
[2021-10-03 16:04] VITALS: BP 133/84
[2021-10-03] MEDS: DOCUSATE SODIUM 100 MG CAP PO SCH (16:25)
[2021-10-03] MEDS: DRONEDARONE 400 MG TAB PO SCH (16:25)
[2021-10-03] MEDS: APIXAB 2.5 MG TABLET PO SCH (16:25)
[2021-10-03] MEDS: SUCRALFATE 1 GM TAB PO SCH (16:25)
[2021-10-03] MEDS: CHOLESTYRAMINE 4 GM PACKET PO SCH (16:29)
[2021-10-03] MEDS ORDERED: APIXABAN 5 MG TABLET PO SCH (17:00)
[2021-10-03 17:53] LABS: CREATINE KINASE MB 2.9 ng/mL (0-5.0)
[2021-10-03 20:00] VITALS: BP 139/90
[2021-10-03] MEDS ORDERED: ATORVASTATIN 20 MG TAB PO SCH (21:00)
[2021-10-03] MEDS ORDERED: ATORVASTATIN 10 MG TAB PO SCH (21:00)
[2021-10-04] VITALS: BP 120/84
[2021-10-04 01:44] LABS: CREATINE KINASE MB 2.4 ng/mL (0-5.0)
[2021-10-04 04:00] VITALS: BP 124/78
[2021-10-04] MEDS: SODIUM CHLORIDE 0.9% 1000ML 1,000 ML IV SCH (04:07)
[2021-10-04 05:30] LABS: BASOPHILS % 0.4 % (0.0-1.0); EOSINOPHILS # (AUTO) 0.1 (0.0-0.4); EOSINOPHILS % 1.3 % (0.0-6.0); HEMATOCRIT 43.1 % (38.2-49.6); HEMOGLOBIN 13.6 g/dL (14.0-18.0); LYMPHOCYTES # (AUTO) 1.1 (1.0-3.2); LYMPHOCYTES % 14.4 % (18.0-39.1); MEAN CORPUSCULAR HEMOGLOBIN 31.3 pg (28-32); MEAN CORPUSCULAR HGB CONC 31.6 g/dL (31-35); MEAN CORPUSCULAR VOLUME 99.1 fL (81-99); MONOCYTES # (AUTO) 0.9 (0.2-0.8); MONOCYTES % 12.3 % (4.4-11.3); NEUTROPHILS # (AUTO) 5.5 (2.1-6.9); NEUTROPHILS % 71.3 % (38.7-80.0); PLATELET COUNT 216 x10e3/uL (140-360); RED BLOOD COUNT 4.35 x10e6/uL (4.3-5.7); RED CELL DISTRIBUTION WIDTH 13.3 % (11.7-14.4)
[2021-10-04 05:47] LABS: ANION GAP 14.8 mmol/L (8-16); CALCIUM 9.5 mg/dL (8.4-10.2); POTASSIUM 3.8 mmol/L (3.5-5.1)
[2021-10-04 06:07] LABS: MAGNESIUM 1.6 MG/DL (1.3-2.1); PHOSPHORUS 3.7 MG/DL (2.3-4.7)
[2021-10-04] MEDS ORDERED: MAGNESIUM SULFATE 2GM/50ML 50 ML IV ONE (07:15)
[2021-10-04 08:10] VITALS: BP 122/79
[2021-10-04] MEDS ORDERED: ELIQUIS2.5 MG PO (08:22)
[2021-10-04] MEDS ORDERED: CARAFATE1 GM PO (08:22)
[2021-10-04] MEDS ORDERED: MULTAQ 400MG T400 MG PO (08:22)
[2021-10-04] MEDS ORDERED: CHOLESTYRAMINE L4 GM PO (08:22)
[2021-10-04] MEDS ORDERED: TOPROL XL50 MG PO (08:22)
[2021-10-04] MEDS ORDERED: LIPITOR20 MG PO (08:22)
[2021-10-04] MEDS ORDERED: TAMSULOSIN HCL 0.4 MG CAP PO SCH (09:00)
[2021-10-04] MEDS ORDERED: FAMOTIDINE 20 MG TAB PO SCH (09:00)
[2021-10-04] MEDS ORDERED: CLOPIDOGREL BISULFATE 75 MG TAB PO SCH (09:00)
[2021-10-04] MEDS: DOCUSATE SODIUM 100 MG CAP PO SCH (09:00)
[2021-10-04] MEDS ORDERED: TELMISARTAN 40 MG TAB PO SCH (09:00)
[2021-10-04] MEDS ORDERED: METOPROLOL SUCCINATE 50 MG TAB XL PO SCH (09:00)
[2021-10-04 09:05] VITALS: BP 122/79
[2021-10-04] MEDS: SUCRALFATE 1 GM TAB PO SCH ×2 (09:39→11:30)
[2021-10-04] MEDS: APIXAB 2.5 MG TABLET PO SCH (09:39)
[2021-10-04] MEDS: FAMOTIDINE 20 MG TAB PO SCH (09:40)
[2021-10-04] MEDS: CHOLESTYRAMINE 4 GM PACKET PO SCH (09:40)
[2021-10-04] MEDS: DRONEDARONE 400 MG TAB PO SCH (09:40)
[2021-10-04 12:28] VITALS: BP 127/78
== END 2021-10-04 13:09 | disposition home or self-care (01) ==
LOC: ER 06:52 → ERHOLD 07:22 → MED/SURG 09:25
PROVIDERS: ADMIT Internal Medicine; ATTEND Internal Medicine
DX: I48.0 Paroxysmal atrial fibrillation (principal); E86.0 Dehydration; I11.9 Hypertensive heart disease without heart failure; D64.9 Anemia, unspecified; R73.9 Hyperglycemia, unspecified; E78.5 Hyperlipidemia, unspecified; E83.52 Hypercalcemia; E83.42 Hypomagnesemia; I25.10 Atherosclerotic heart disease of native coronary artery without angina pectoris; N40.0 Benign prostatic hyperplasia without lower urinary tract symptoms; K21.9 Gastro-esophageal reflux disease without esophagitis; I25.2 Old myocardial infarction; Z95.810 Presence of automatic (implantable) cardiac defibrillator; Z95.5 Presence of coronary angioplasty implant and graft; Z82.49 Family history of ischemic heart disease and other diseases of the circulatory system; Z81.1 Family history of alcohol abuse and dependence; Z83.3 Family history of diabetes mellitus; Z84.1 Family history of disorders of kidney and ureter; Z20.822 Contact with and (suspected) exposure to COVID-19
CPT/HCPCS: 36415; 71045; 80048; 80053; 82550 ×2; 82553 ×2; 83735; 83880; 84100; 84443; 84484 ×2; 85025 ×2; 85610; 93005; 93306; 94799; 99284; G0378 ×2; J1650; J3475; J7030; J7040; U0002

== ENCOUNTER 2022-02-11 16:21 | Emergency (ER) | payer MEDICARE, OTHER ==
[~2022-02-11] VITALS: Ht 170.2 cm; Wt 91.6 kg
[~2022-02-11 16:21] MED LIST changes: +CARAFATE1 GM PO; +CHOLESTYRAMINE L4 GM PO; +ELIQUIS2.5 MG PO; +LIPITOR20 MG PO; +MULTAQ 400MG T400 MG PO; +TOPROL XL50 MG PO
[2022-02-11] MEDS ORDERED: ACETAMINOPHEN 325 MG TAB PO ONE (16:45)
[2022-02-11] MEDS ORDERED: ACETAMINOPHEN 325 MG/10 ML UDC ONE (16:50)
[2022-02-11] MEDS ORDERED: ACETAMINOPHEN 325 MG TAB ONE (16:51)
[2022-02-11 18:44] VITALS: BP 173/92
== END 2022-02-11 17:55 | disposition home or self-care (01) ==
LOC: ER 16:25
DX: S09.90XA Unspecified injury of head, initial encounter (principal); W01.0XXA Fall on same level from slipping, tripping and stumbling without subsequent striking against object, initial encounter; Y93.01 Activity, walking, marching and hiking; I10 Essential (primary) hypertension; I25.10 Atherosclerotic heart disease of native coronary artery without angina pectoris; I25.2 Old myocardial infarction; E78.5 Hyperlipidemia, unspecified; D64.9 Anemia, unspecified; Z95.810 Presence of automatic (implantable) cardiac defibrillator; S00.93XA Contusion of unspecified part of head, initial encounter
CPT/HCPCS: 70450; 99282

== ENCOUNTER 2024-07-01 19:45 | Emergency (ER) | payer MEDICARE, OTHER ==
[~2024-07-01] VITALS: Ht 170.2 cm; Wt 90.7 kg
[2024-07-01 19:45] VITALS: TEMP 97.9
[~2024-07-01 19:45] MED LIST changes: +ASPIRIN325 MG PO; +LOSARTAN POTAS100 MG PO
[2024-07-01 20:18] LABS: BASOPHILS % 0.5 % (0.0-1.0); EOSINOPHILS # (AUTO) 0.1 (0.0-0.4); EOSINOPHILS % 0.8 % (0.0-6.0); HEMATOCRIT 36.7 % (38.2-49.6); HEMOGLOBIN 12.2 g/dL (14.0-18.0); LYMPHOCYTES # (AUTO) 2.2 (1.0-3.2); LYMPHOCYTES % 26.2 % (18.0-39.1); MEAN CORPUSCULAR HGB CONC 33.2 g/dL (31-35); MEAN CORPUSCULAR VOLUME 90.4 fL (81-99); MONOCYTES # (AUTO) 0.6 (0.2-0.8); MONOCYTES % 7.1 % (4.4-11.3); NEUTROPHILS # (AUTO) 5.5 (2.1-6.9); PLATELET COUNT 260 x10e3/uL (140-360); RED BLOOD COUNT 4.06 x10e6/uL (4.3-5.7); RED CELL DISTRIBUTION WIDTH 13.2 % (11.7-14.4); WHITE BLOOD COUNT 8.42 x10e3/uL (4.8-10.8)
[2024-07-01 20:22] LABS: CLARITY,URINE CLOUDY (CLEAR); COLOR,URINE RED (YELLOW)
[2024-07-01 20:23] LABS: INR 1.04; PROTHROMBIN TIME 14.2 seconds (11.9-14.5)
[2024-07-01 20:24] LABS: PARTIAL THROMBOPLASTIN TIME 32.9 seconds (23.8-35.5)
[2024-07-01 20:25] LABS: NITRITE,URINE NEGATIVE (NEGATIVE); PH,URINE 8.5 (5 - 7)
[2024-07-01 20:26] LABS: BILIRUBIN,URINE LARGE (NEGATIVE); GLUCOSE, URINE 1+ (NEGATIVE); KETONES,URINE 2+ (NEGATIVE); LEUKOCYTE ESTERASE ,URINE LARGE (NEGATIVE); PROTEIN,URINE DIPSTICK >=300 (NEGATIVE)
[2024-07-01 20:27] LABS: BACTERIA,URINE RARE /HPF; EPITHELIAL CELLS,URINE RARE /LPF; RBC,URINE >50 /HPF (0-5); WBC,URINE (MAN) 0-5 /HPF (0-5)
[2024-07-01 20:32] LABS: ALBUMIN/GLOBULIN RATIO 1.1 (0.8-2.0); ANION GAP 15.4 mmol/L (8-16); BILIRUBIN,TOTAL 1.2 mg/dL (0.2-1.2); CALCIUM 9.2 mg/dL (8.4-10.2); CREATININE, SERUM 0.95 mg/dL (0.72-1.25); TOTAL PROTEIN 7.5 g/dL (6.5-8.1)
[2024-07-01 20:43] LABS: POTASSIUM 3.4 mmol/L (3.5-5.1)
[2024-07-01] MEDS ORDERED: SODIUM CHLORIDE 0.9% 250ML 250 ML ONE (22:33)
[2024-07-01] MEDS ORDERED: IOPAMIDOL 370 MG/ML 100 ML INFUS..BTL INJ ONE (22:33)
[2024-07-01 23:59] VITALS: PULSE 88; RESP 16
[2024-07-02 01:49] VITALS: BP 169/92; PULSE 78; RESP 18; O2SAT 98
== END 2024-07-02 01:59 | disposition home or self-care (01) ==
LOC: ER 21:21
DX: R31.9 Hematuria, unspecified (principal); N40.0 Benign prostatic hyperplasia without lower urinary tract symptoms; K43.9 Ventral hernia without obstruction or gangrene; I10 Essential (primary) hypertension; E78.5 Hyperlipidemia, unspecified; D64.9 Anemia, unspecified; I25.2 Old myocardial infarction
CPT/HCPCS: 36415; 74178; 80053; 81001; 85025; 85610; 85730; 87086; 99284; J7050; Q9967

== ENCOUNTER 2024-12-19 20:57 | Observation (INO) | payer MEDICARE ==
[~2024-12-19] VITALS: Ht 170.2 cm; Wt 90.7 kg
[2024-12-19 22:01] LABS: LEUKOCYTE ESTERASE ,URINE NEGATIVE (NEGATIVE); PROTEIN,URINE DIPSTICK 1+ (NEGATIVE); URINE UROBILINOGEN 0.2 mg/dL (0.2 - 1)
[2024-12-19 22:02] LABS: EPITHELIAL CELLS,URINE FEW /LPF
[2024-12-19 23:25] VITALS: TEMP 98
[2024-12-19] MEDS ORDERED: Morphine 4mg INJECTION 4 MG/ML INJ IV PRN (23:30)
[2024-12-19] MEDS ORDERED: ONDANSETRON HCL INJ 2MG/ML 2ML 2 MG/ML VIAL IV PRN (23:30)
[2024-12-19 23:45] VITALS: PULSE 85; RESP 16
[2024-12-19] MEDS: SODIUM CHLORIDE 0.9% 1000ML 1,000 ML IV SCH (23:53)
[2024-12-20] VITALS (7 sets, daily range): BP systolic 115–139; BP diastolic 66–82; PULSE 68–89; RESP 17–19; TEMP 97.6–98.9; O2SAT 95–99
[2024-12-20 01:27] LABS: EST GLOMERULAR FILTRATION RATE 80.0 ML/MIN (>=60)
[2024-12-20 05:45] LABS: BASOPHILS % 0.1 % (0.0-1.0); EOSINOPHILS % 1.2 % (0.0-6.0); LYMPHOCYTES % 18.8 % (18.0-39.1); MONOCYTES % 12.6 % (4.4-11.3); NEUTROPHILS % 66.7 % (38.7-80.0); RED CELL DISTRIBUTION WIDTH 15.9 % (11.7-14.4)
[2024-12-20 06:22] LABS: EST GLOMERULAR FILTRATION RATE 85.0 ML/MIN (>=60)
[2024-12-20 09:34] LABS: RED CELL DISTRIBUTION WIDTH 15.1 % (11.7-14.4)
[2024-12-20 09:35] LABS: LYMPHOCYTES % 19.9 % (18.0-39.1)
[2024-12-20 09:36] LABS: NEUTROPHILS % 73.3 % (38.7-80.0)
== END 2024-12-20 18:00 | disposition home or self-care (01) ==
LOC: ER 21:02 → ERHOLD 23:26 → MED/SURG3 23:58
PROVIDERS: ADMIT Internal Medicine; ATTEND Internal Medicine
DX: K43.2 Incisional hernia without obstruction or gangrene (principal); N40.1 Benign prostatic hyperplasia with lower urinary tract symptoms; R39.11 Hesitancy of micturition; U07.1 COVID-19; R19.7 Diarrhea, unspecified; I10 Essential (primary) hypertension; I25.10 Atherosclerotic heart disease of native coronary artery without angina pectoris; E78.5 Hyperlipidemia, unspecified; I48.92 Unspecified atrial flutter; I25.2 Old myocardial infarction; Z79.02 Long term (current) use of antithrombotics/antiplatelets; Z87.891 Personal history of nicotine dependence
CPT/HCPCS: 36415; 74176; 80053; 81001; 83690; 85025; 87086; 99284; G0378; J2543; J7030